=== PATIENT | male | born 1940 | race Asian ===

== ENCOUNTER 2024-02-17 22:08 | Emergency (ER) | payer MEDICARE ==
[~2024-02-17] VITALS: Ht 162.6 cm; Wt 55.0 kg
[2024-02-17 22:21] VITALS: O2SAT 100
[2024-02-17 23:33] LABS: BASOPHILS % 0.6 % (0.0-2.0); EOSINOPHILS % 1.8 % (0.0-5.0); HEMATOCRIT. 27.4 % (42.0-52.0); HEMOGLOBIN. 8.9 g/dL (14.0-18.0); LYMPHOCYTES % 13.6 % (20.0-50.0); MEAN CORPUSCULAR HEMOGLOBIN 31.7 pg (28.0-32.0); MEAN CORPUSCULAR HGB CONC 32.4 g/dL (31.0-37.0); MEAN CORPUSCULAR VOLUME 97.8 fL (80.0-94.0); MEAN PLATELET VOLUME 9.3 fl (7.4-10.4); PLATELET 101 x1000/uL (130-400); RED CELL DISTRIBUTION WIDTH 15.6 % (11.6-14.6); WHITE BLOOD COUNT 4.7 x1000/uL (4.5-11.0)
[2024-02-17 23:41] LABS: POTASSIUM 4.9 mEq/L (3.5-5.1)
[2024-02-17 23:42] LABS: CALCIUM 8.5 mg/dL (8.7-10.4)
[2024-02-17 23:44] LABS: INR 1.1; PROTHROMBIN TIME 11.7 sec (9.6-11.0)
[2024-02-18] MEDS ORDERED: OXYM30SP26 BOTHNSTRLS (00:39)
[2024-02-18 00:50] VITALS: BP 148/81; PULSE 75; RESP 19; TEMP 36.61404; O2SAT 100
== END 2024-02-18 01:27 | disposition home or self-care (01) ==
LOC: ER 22:08
DX: R04.0 Epistaxis (principal); I10 Essential (primary) hypertension
CPT/HCPCS: 36415; 80048; 85025; 99283

== ENCOUNTER 2024-09-13 23:35 | Inpatient (IN) | payer MEDICARE, OTHER ==
[~2024-09-13] VITALS: Ht 149.9 cm; Wt 58.1 kg
[~2024-09-13 23:35] MED LIST: OXYM30SP26 BOTHNSTRLS
[2024-09-14] MEDS: SODIUM CHLORIDE 0.9% 1,000 ML IV ONE (00:15)
[2024-09-14 01:08] LABS: CLARITY URINE CLOUDY (CLEAR); COLOR URINE YELLOW (YELLOW); GLUCOSE URINE NEGATIVE (NEGATIVE); KETONES URINE NEGATIVE (NEGATIVE); LEUKOCYTE ESTERASE URINE 2+ (NEGATIVE); NITRITE URINE NEGATIVE (NEGATIVE); OCCULT BLOOD URINE 3+ (NEGATIVE); PH URINE 6.5 (4.5-8.0); PROTEIN URINE 1+ (NEGATIVE); SPECIFIC GRAVITY URINE 1.011 (1.005-1.030); UROBILINOGEN URINE 0.2 E.U./dL (0.2-1.0)
[2024-09-14 01:13] LABS: BASOPHILS % 0.8 % (0.0-2.0); EOSINOPHILS % 1.2 % (0.0-5.0); HEMATOCRIT. 28.5 % (42.0-52.0); HEMOGLOBIN. 9.3 g/dL (14.0-18.0); LYMPHOCYTES % 13.3 % (20.0-50.0); MEAN CORPUSCULAR HEMOGLOBIN 29.3 pg (28.0-32.0); MEAN CORPUSCULAR HGB CONC 32.7 g/dL (31.0-37.0); MEAN CORPUSCULAR VOLUME 89.9 fL (80.0-94.0); MEAN PLATELET VOLUME 8.5 fl (7.4-10.4); MONOCYTES % 4.2 % (2.0-8.0); NEUTROPHILS % 80.5 % (40.0-76.0); PLATELET 92 x1000/uL (130-400); RED BLOOD CELL COUNT 3.18 mill/uL (4.7-6.1); RED CELL DISTRIBUTION WIDTH 16.2 % (11.6-14.6); WHITE BLOOD COUNT 5.4 x1000/uL (4.5-11.0)
[2024-09-14 01:29] LABS: D-DIMER 15.66 mg/L FEU (<0.50); PROTHROMBIN TIME 11.1 sec (9.6-11.0)
[2024-09-14 01:33] LABS: CHLORIDE 101 mEq/L (98-107); POTASSIUM 4.8 mEq/L (3.5-5.1); SODIUM 137 mEq/L (136-145)
[2024-09-14 01:34] LABS: CALCIUM 8.4 mg/dL (8.7-10.4); CARBON DIOXIDE 25 mEq/L (21-32)
[2024-09-14 01:39] LABS: GLUCOSE 146 mg/dL (70-105); UREA NITROGEN BLOOD 62 mg/dL (9-23)
[2024-09-14 01:47] LABS: CREATININE 3.3 mg/dL (0.6-1.3)
[2024-09-14 01:49] LABS: TROPONIN I HIGH SENSITIVITY 104 ng/L (3.0-53)
[2024-09-14 01:50] LABS: BACTERIA URINE 3+; RBC URINE 50-100 /hpf (0-2); SQUAMOUS EPITHELIAL CELL URINE NONE SEEN /lpf (RARE/1+); WBC URINE 25-50 /hpf (0-2)
[2024-09-14] MEDS: PIPERACILLIN/TAZO 3.375G/50ML 50 ML IV SCH (02:32)
[2024-09-14] MEDS: VANCOMYCIN 1G PREMIX 200 ML IV ONE (03:14)
[2024-09-14] MEDS ORDERED: GUAIFENESIN 200MG/10ML SUGAR FREE UDC PO PRN (03:15)
[2024-09-14] MEDS ORDERED: ONDANSETRON HCL 4MG/2ML INJ IV PRN (03:15)
[2024-09-14] MEDS ORDERED: IPRATROPIUM/ALBUTEROL 0.5-3(2.5)MG/3ML NEB HHN PRN (03:15)
[2024-09-14] MEDS ORDERED: ACETAMINOPHEN 325MG TABLET PO PRN (03:15)
[2024-09-14] MEDS ORDERED: DOCUSATE SODIUM 100MG CAPSULE PO PRN (03:15)
[2024-09-14 05:05] LABS: ALANINE AMINOTRANSFERASE < 7 IU/L (10-49); ASPARTATE AMINOTRANSFERASE 12 IU/L (<34)
[2024-09-14 05:06] LABS: ALBUMIN 3.7 g/dL (3.2-4.8); BILIRUBIN DIRECT 0.1 mg/dL (<=3.0); BILIRUBIN TOTAL 0.4 mg/dL (0.1-1.0); PROTEIN TOTAL 7.1 g/dL (6.0-8.3)
[2024-09-14 05:08] LABS: TROPONIN I HIGH SENSITIVITY 94 ng/L (3.0-53)
[2024-09-14 06:59] VITALS: BP 140/89; PULSE 78; RESP 19; TEMP 36.8
[2024-09-14 07:51] LABS: TROPONIN I HIGH SENSITIVITY 116 ng/L (3.0-53)
[2024-09-14 08:14] VITALS: BP 152/83; PULSE 73; RESP 18; TEMP 36.7; O2SAT 96
[2024-09-14] MEDS ORDERED: CEFTRIAXONE 1GM/50ML 50 ML IV SCH (10:15)
[2024-09-14 12:00] VITALS: BP 131/65; PULSE 70; RESP 20; TEMP 36.8; O2SAT 99
[2024-09-14] MEDS: SODIUM CHLORIDE 0.9% 1,000 ML IV SCH (13:01)
[2024-09-14 16:00] VITALS: BP 136/78; PULSE 78; RESP 18; TEMP 36.2; O2SAT 100
[2024-09-14 20:00] VITALS: BP 165/98; PULSE 89; RESP 20; TEMP 36.7; O2SAT 98
[2024-09-14] MEDS: CLONIDINE 0.1MG TABLET PO PRN (23:54)
[2024-09-15] VITALS: BP 172/93; PULSE 70; RESP 20; TEMP 36.7; O2SAT 98
[2024-09-15 04:00] VITALS: BP 117/72; PULSE 82; RESP 18; TEMP 36.6; O2SAT 97
[2024-09-15 06:10] LABS: BASOPHILS % 1.3 % (0.0-2.0); EOSINOPHILS % 2.8 % (0.0-5.0); HEMATOCRIT 27.6 % (42.0-52.0); HEMATOCRIT. 27.6 % (42.0-52.0); HEMOGLOBIN 8.9 g/dL (14.0-18.0); HEMOGLOBIN. 8.9 g/dL (14.0-18.0); LYMPHOCYTES % 18.3 % (20.0-50.0); MEAN CORPUSCULAR HEMOGLOBIN 28.9 pg (28.0-32.0); MEAN CORPUSCULAR HGB CONC 32.3 g/dL (31.0-37.0); MEAN CORPUSCULAR VOLUME 89.6 fL (80.0-94.0); MEAN PLATELET VOLUME 8.6 fl (7.4-10.4); MONOCYTES % 7.2 % (2.0-8.0); NEUTROPHILS % 70.4 % (40.0-76.0); PLATELET 85 x1000/uL (130-400); RED BLOOD CELL COUNT 3.08 mill/uL (4.7-6.1); RED CELL DISTRIBUTION WIDTH 15.7 % (11.6-14.6); WHITE BLOOD COUNT 4.4 x1000/uL (4.5-11.0)
[2024-09-15 06:39] LABS: POTASSIUM 4.7 mEq/L (3.5-5.1)
[2024-09-15 06:40] LABS: CALCIUM 8.4 mg/dL (8.7-10.4)
[2024-09-15 06:45] LABS: CREATININE 2.9 mg/dL (0.6-1.3)
[2024-09-15 08:29] VITALS: BP 150/93; PULSE 73; RESP 18; TEMP 37.1; O2SAT 96
[2024-09-15] MEDS ORDERED: CEFTRIAXONE 1,000 MG in DEXT 5% WATER 100 ML IV SCH (10:30)
[2024-09-15] MEDS: TAMSULOSIN HCL 0.4MG SR CAPSULE PO SCH (10:44)
[2024-09-15 12:33] VITALS: BP 113/99; PULSE 70; RESP 17; TEMP 37.1; O2SAT 100
[2024-09-15] MEDS: CEFTRIAXONE 1GM/50ML 50ML IV SCH (13:40)
[2024-09-15 16:48] VITALS: BP 149/81; PULSE 71; RESP 20; TEMP 36.6; O2SAT 100
[2024-09-15 20:00] VITALS: BP 180/99; PULSE 71; RESP 20; TEMP 35.8; O2SAT 98
[2024-09-16] VITALS: BP_SYST 153; BP_SYST 167; BP_DIAS 79; BP_DIAS 85; PULSE 69; RESP 18; TEMP 36.2; O2SAT 99
[2024-09-16 04:00] VITALS: BP 154/82; PULSE 69; RESP 18; TEMP 36.1; O2SAT 99
[2024-09-16 07:20] LABS: POTASSIUM 4.9 mEq/L (3.5-5.1)
[2024-09-16 07:22] LABS: CALCIUM 8.1 mg/dL (8.7-10.4)
[2024-09-16 07:26] LABS: CREATININE 2.7 mg/dL (0.6-1.3)
[2024-09-16 07:47] LABS: HEMATOCRIT 25.5 % (42.0-52.0); HEMOGLOBIN 8.3 g/dL (14.0-18.0); MEAN CORPUSCULAR HEMOGLOBIN 28.9 pg (28.0-32.0); MEAN CORPUSCULAR HGB CONC 32.7 g/dL (31.0-37.0); MEAN CORPUSCULAR VOLUME 88.6 fL (80.0-94.0); PLATELET 83 x1000/uL (130-400); RED BLOOD CELL COUNT 2.87 mill/uL (4.7-6.1); RED CELL DISTRIBUTION WIDTH 15.5 % (11.6-14.6); WHITE BLOOD COUNT 4.2 x1000/uL (4.5-11.0)
[2024-09-16 08:00] VITALS: BP 135/76; PULSE 72; RESP 17; TEMP 36.3; O2SAT 92
[2024-09-16 12:00] VITALS: BP 136/78; PULSE 71; RESP 18; TEMP 36.6; O2SAT 90
[2024-09-16 16:00] VITALS: BP 130/76; PULSE 70; RESP 18; TEMP 36.4; O2SAT 98
[2024-09-16 20:00] VITALS: BP 121/69; PULSE 63; RESP 18; TEMP 36.6; O2SAT 99
[2024-09-17 04:00] VITALS: BP 122/80; PULSE 71; RESP 20; TEMP 36.7; O2SAT 99
[2024-09-17 06:08] LABS: BASOPHILS % 0.9 % (0.0-2.0); EOSINOPHILS % 3.2 % (0.0-5.0); HEMATOCRIT. 25.1 % (42.0-52.0); HEMOGLOBIN. 8.2 g/dL (14.0-18.0); LYMPHOCYTES % 17.8 % (20.0-50.0); MEAN CORPUSCULAR HEMOGLOBIN 28.9 pg (28.0-32.0); MEAN CORPUSCULAR HGB CONC 32.6 g/dL (31.0-37.0); MEAN CORPUSCULAR VOLUME 88.6 fL (80.0-94.0); MEAN PLATELET VOLUME 8.8 fl (7.4-10.4); MONOCYTES % 7.3 % (2.0-8.0); NEUTROPHILS % 70.8 % (40.0-76.0); PLATELET 79 x1000/uL (130-400); RED BLOOD CELL COUNT 2.83 mill/uL (4.7-6.1); RED CELL DISTRIBUTION WIDTH 15.7 % (11.6-14.6); WHITE BLOOD COUNT 4.7 x1000/uL (4.5-11.0)
[2024-09-17 08:00] VITALS: BP 155/93; PULSE 84; RESP 20; TEMP 36.8; O2SAT 100
[2024-09-17 08:36] LABS: POTASSIUM 5.4 mEq/L (3.5-5.1)
[2024-09-17 08:37] LABS: CALCIUM 8.2 mg/dL (8.7-10.4)
[2024-09-17 08:42] LABS: CREATININE 2.8 mg/dL (0.6-1.3)
[2024-09-17 11:57] VITALS: BP 127/68; PULSE 69; RESP 18; TEMP 36.7; O2SAT 100
[2024-09-17 15:58] VITALS: BP 145/73; PULSE 69; RESP 20; TEMP 36.7; O2SAT 99
[2024-09-17] MEDS: SODIUM ZIRCONIUM CYCLOSILICATE 10GM/PACKET PO NR (19:39)
[2024-09-17 20:00] VITALS: BP 160/87; PULSE 70; RESP 20; TEMP 36.6; O2SAT 100
[2024-09-17] MEDS: MELATONIN 3MG TABLET PO NR (23:07)
[2024-09-18] VITALS: BP 144/79; PULSE 70; RESP 18; TEMP 36.7; O2SAT 100
[2024-09-18 04:00] VITALS: BP 152/80; PULSE 70; RESP 18; TEMP 36.2; O2SAT 99
[2024-09-18 08:07] VITALS: BP 97/53; PULSE 73; RESP 18; TEMP 36.2; O2SAT 100
[2024-09-18] MEDS: SODIUM CHLORIDE 0.9% 500 ML IV ONE (11:30)
[2024-09-18 11:48] LABS: POTASSIUM 4.9 mEq/L (3.5-5.1)
[2024-09-18 11:49] LABS: CALCIUM 7.9 mg/dL (8.7-10.4)
[2024-09-18 11:51] VITALS: BP 114/69; PULSE 69; RESP 20; TEMP 36.6; O2SAT 100
[2024-09-18 11:51] LABS: HEMATOCRIT 25.9 % (42.0-52.0); HEMOGLOBIN 8.4 g/dL (14.0-18.0); MEAN CORPUSCULAR HGB CONC 32.4 g/dL (31.0-37.0); MEAN CORPUSCULAR VOLUME 89.5 fL (80.0-94.0); PLATELET 76 x1000/uL (130-400); RED CELL DISTRIBUTION WIDTH 15.7 % (11.6-14.6); WHITE BLOOD COUNT 3.9 x1000/uL (4.5-11.0)
[2024-09-18 11:54] LABS: CREATININE 2.7 mg/dL (0.6-1.3)
[2024-09-18 16:08] VITALS: BP 123/81; PULSE 71; RESP 19; TEMP 36.5; O2SAT 100
[2024-09-18] MEDS: POLYETHYLENE GLYCOL 3350 (17GM) 1 DOSE PACK PO SCH (17:49)
[2024-09-18 20:00] VITALS: BP 143/77; PULSE 70; RESP 20; TEMP 36.6; O2SAT 99
[2024-09-18] MEDS ORDERED: MELATONIN 3MG TABLET PO SCH (21:00)
[2024-09-19] VITALS (7 sets, daily range): BP systolic 119–150; BP diastolic 69–87; PULSE 69–78; RESP 18–20; TEMP 36.4–36.8; O2SAT 96–100
[2024-09-19 07:55] LABS: POTASSIUM 5.5 mEq/L (3.5-5.1)
[2024-09-19 07:56] LABS: CALCIUM 8.4 mg/dL (8.7-10.4)
[2024-09-19 08:02] LABS: HEMATOCRIT 25.7 % (42.0-52.0); HEMOGLOBIN 8.3 g/dL (14.0-18.0); MEAN CORPUSCULAR HGB CONC 32.3 g/dL (31.0-37.0); MEAN CORPUSCULAR VOLUME 89.9 fL (80.0-94.0); PLATELET 81 x1000/uL (130-400); RED BLOOD CELL COUNT 2.86 mill/uL (4.7-6.1); RED CELL DISTRIBUTION WIDTH 15.5 % (11.6-14.6); WHITE BLOOD COUNT 4.1 x1000/uL (4.5-11.0)
[2024-09-19] MEDS: SODIUM ZIRCONIUM CYCLOSILICATE 10GM/PACKET PO NR (09:33)
[2024-09-19] MEDS ORDERED: RIVA10TA PO (12:33)
[2024-09-19] MEDS ORDERED: SPIR25TA6 PO (12:33)
[2024-09-19] MEDS ORDERED: DONE-53 PO (12:33)
[2024-09-19] MEDS ORDERED: FURO20TA4 PO (12:33)
[2024-09-19] MEDS ORDERED: CARV6.2548 PO (12:33)
[2024-09-19] MEDS ORDERED: TAMS-54 PO (12:42)
== END 2024-09-19 20:40 | disposition home or self-care (01) | DRG 689 ==
LOC: ER 23:35 → 7WST 09-14 02:44 → EDBEDREQ 09-14 02:59 → ENRESERV 09-14 03:29
PROVIDERS: ADMIT Internal Medicine; ATTEND Internal Medicine
DX: N39.0 Urinary tract infection, site not specified (principal); I21.A1 Myocardial infarction type 2; D61.818 Other pancytopenia; N17.9 Acute kidney failure, unspecified; I50.22 Chronic systolic (congestive) heart failure; T82.6XXA Infection and inflammatory reaction due to cardiac valve prosthesis, initial encounter; I38 Endocarditis, valve unspecified; I13.0 Hypertensive heart and chronic kidney disease with heart failure and stage 1 through stage 4 chronic kidney disease, or unspecified chronic kidney disease; E86.0 Dehydration; I72.3 Aneurysm of iliac artery; N18.30 Chronic kidney disease, stage 3 unspecified; E11.65 Type 2 diabetes mellitus with hyperglycemia; G31.9 Degenerative disease of nervous system, unspecified; B96.1 Klebsiella pneumoniae [K. pneumoniae] as the cause of diseases classified elsewhere; R62.7 Adult failure to thrive; E83.51 Hypocalcemia; N40.0 Benign prostatic hyperplasia without lower urinary tract symptoms; I25.10 Atherosclerotic heart disease of native coronary artery without angina pectoris; N28.1 Cyst of kidney, acquired; E87.5 Hyperkalemia; Y83.8 Other surgical procedures as the cause of abnormal reaction of the patient, or of later complication, without mention of misadventure at the time of the procedure; E27.8 Other specified disorders of adrenal gland; K80.20 Calculus of gallbladder without cholecystitis without obstruction; Z79.01 Long term (current) use of anticoagulants; Z95.810 Presence of automatic (implantable) cardiac defibrillator; Y92.89 Other specified places as the place of occurrence of the external cause; Z87.891 Personal history of nicotine dependence
CPT/HCPCS: 36415; 71045; 74176; 76770; 80048; 80076; 81003; 83605; 83880; 84145; 84153; 84484; 85025; 85027; 85379; 86850; 86900; 87077; 87186; 93005; 93306; 93970; 97165; 99291; J0696; J2405; J2543; J3370; J7030